=== PATIENT | female | born 1960 | race Caucasian/White ===

== ENCOUNTER 2020-09-23 02:46 | Inpatient (IN) ==
[2020-09-23] MEDS ORDERED: Ondansetron 4 MG/2 ML VIAL IVP PRN (03:03)
[2020-09-23] MEDS ORDERED: Naloxone 0.4 MG/ML INJ IVP PRN (03:03)
[2020-09-23] MEDS ORDERED: 0.9 % Sodium Chloride 1,000 ML IVC ONE (03:05)
[2020-09-23 03:49] LABS: Basophils % 0.4 %; Eosinophils % 0.4 %; Hematocrit 28.2 % (35.3-44.9); Hemoglobin 9.6 g/dL (11.5-15.4); Immature Granulocytes % 0.2 % (0-4); Lymphocytes # 1.8 K/mcL (0.6-4.6); Lymphocytes % 32.1 %; Mean Corpuscular Hemoglobin 31.7 pg (28.0-33.3); Mean Corpuscular Volume 93.1 fL (83.0-100.0); Mean Platelet Volume 9.3 fL (9.4-12.4); Monocytes # 0.4 K/mcL (0.0-1.3); Monocytes % 7.3 %; Neutrophils # 3.4 K/mcL (1.6-8.9); Platelet Count 263 K/mcL (140-400); Red Blood Count 3.03 M/mcL (3.82-4.97); Red Cell Distribution Width 13.2 % (11.5-14.5); Segmented Neutrophils % 59.6 %; White Blood Count 5.6 K/mcL (4.3-11.1)
[2020-09-23 03:56] LABS: INR 1.2; Prothrombin Time 13.8 Seconds (9.4-12.1)
[2020-09-23 04:15] LABS: Alanine Aminotransferase 10 Units/L (7-52); Albumin 2.8 g/dL (3.5-5.7); Albumin/Globulin Ratio 1.5 (1.1-2.2); Alkaline Phosphatase 31 Units/L (34-104); Aspartate Amino Transferase 14 Units/L (13-39); BUN/Creatinine Ratio 12 (6-26); Bilirubin,Total 0.5 mg/dL (0.3-1.0); Blood Urea Nitrogen 10 mg/dL (8-23); Calcium 7.2 mg/dL (8.6-10.3); Carbon Dioxide 20 mEq/L (23-29); Chloride 109 mEq/L (98-107); Globulin 1.9 g/dL (2.4-3.5); Glucose 113 mg/dL (70-105); Magnesium 1.5 mg/dL (1.6-2.6); Osmolality,Calculated 282 (280-300); Phosphorous 3.1 mg/dL (2.7-4.5); Potassium 3.3 mEq/L (3.5-5.1); Sodium 136 mEq/L (136-145); Total Protein 4.7 g/dL (6.4-8.9); Troponin I 0.07 ng/mL (< 0.04); eGFR For African Americans > 60 (> 60); eGFR For Non-African Americans > 60 (> 60)
[2020-09-23 05:15] LABS: Lipase 53 Units/L (11-82)
[2020-09-23] MEDS ORDERED: *HR* Enoxaparin 60 MG/0.6 ML SYRINGE SQ SCH (06:00)
[2020-09-23] MEDS ORDERED: Perflutren Lipid Microsphere 1.3 ML in 0.9 % Sodium Chloride 8.7 ML IVP PRN (08:10)
[2020-09-23] MEDS ORDERED: 0.9 % Sodium Chloride 500 ML IVC SCH (11:15)
[2020-09-23] MEDS ORDERED: 0.9 % Sodium Chloride 500 ML ONE (11:18)
[2020-09-23] MEDS: Acetaminophen 325 MG TABLET PO PRN (11:26)
[2020-09-23] MEDS ORDERED: *HR* Heparin 5,000 UNIT/ML VIAL IVP PRN ×4 (14:42→18:00)
[2020-09-23] MEDS: Aspirin Enteric Coated 81 MG Tablet PO SCH (15:10)
[2020-09-23] MEDS ORDERED: *HR* Promethazine 25 MG/ML VIAL IM PRN (16:20)
[2020-09-23] MEDS ORDERED: *HR* Metoprolol 5 MG/5 ML VIAL IVP PRN (16:20)
[2020-09-23] MEDS ORDERED: Isovue-370 500 ML BOTTLE IVP ONE (17:10)
[2020-09-23] MEDS ORDERED: Morphine Sulfate 2 MG/ML SYRINGE IVP ONE (17:11)
[2020-09-23] MEDS ORDERED: *HR* Metoprolol 5 MG/5 ML VIAL IVP ONE (17:27)
[2020-09-23] MEDS ORDERED: *HR* Heparin 5,000 UNIT/ML VIAL IVP ONE (18:00)
[2020-09-23] MEDS ORDERED: Ketorolac 30 MG/ML VIAL IVP ONE (18:07)
[2020-09-23] MEDS: Heparin 25,000UNIT/250ML 1/2NS 25,000 UNIT/250 ML IV.SOLN IVC SCH (19:18)
[2020-09-23] MEDS ORDERED: *HR* Promethazine 25 MG/ML VIAL IM ONE (19:37)
[2020-09-23] MEDS: Ondansetron 4 MG/2 ML VIAL IVP PRN (20:59)
[2020-09-23 23:04] LABS: Heparin anti-factor XA UFH 0.67 IU/mL (0.30-0.70)
[2020-09-23 23:05] LABS: Prothrombin Time 11.8 Seconds (9.4-12.1)
[2020-09-23 23:16] LABS: Hematocrit 32.6 % (35.3-44.9); Hemoglobin 11.2 g/dL (11.5-15.4); Mean Corpuscular HGB Conc 34.4 g/dL (31.6-35.5); Mean Corpuscular Hemoglobin 32.8 pg (28.0-33.3); Mean Corpuscular Volume 95.6 fL (83.0-100.0); Mean Platelet Volume 9.5 fL (9.4-12.4); Platelet Count 257 K/mcL (140-400); Red Blood Count 3.41 M/mcL (3.82-4.97); Red Cell Distribution Width 13.2 % (11.5-14.5); White Blood Count 4.9 K/mcL (4.3-11.1)
[2020-09-24 03:48] LABS: Basophils % 0.2 %; Immature Granulocytes % 0.2 % (0-4); Lymphocytes # 1.7 K/mcL (0.6-4.6); Lymphocytes % 41.5 %; Mean Corpuscular HGB Conc 33.9 g/dL (31.6-35.5); Mean Corpuscular Volume 97.2 fL (83.0-100.0); Mean Platelet Volume 9.1 fL (9.4-12.4); Monocytes # 0.3 K/mcL (0.0-1.3); Monocytes % 6.1 %; Neutrophils # 2.1 K/mcL (1.6-8.9); Platelet Count 220 K/mcL (140-400); Red Blood Count 2.88 M/mcL (3.82-4.97); Red Cell Distribution Width 13.3 % (11.5-14.5); White Blood Count 4.1 K/mcL (4.3-11.1)
[2020-09-24 03:49] LABS: Hemoglobin 9.5 g/dL (11.5-15.4)
[2020-09-24 04:03] LABS: BUN/Creatinine Ratio 8 (6-26); Blood Urea Nitrogen 7 mg/dL (8-23); Carbon Dioxide 22 mEq/L (23-29); Chloride 109 mEq/L (98-107); Glucose 101 mg/dL (70-105); Osmolality,Calculated 278 (280-300); Potassium 3.5 mEq/L (3.5-5.1); Sodium 135 mEq/L (136-145); eGFR For African Americans > 60 (> 60); eGFR For Non-African Americans > 60 (> 60)
[2020-09-24 04:05] LABS: % Iron Saturation 38 % (15-50); Iron 103 mcg/dL (50-170); Transferrin 192 mg/dL (203-362)
[2020-09-24 04:24] LABS: Ferritin 83 ng/mL (10-120)
[2020-09-24 04:29] LABS: Folate 6.1 ng/mL (3.0-16.0)
[2020-09-24 04:30] LABS: Vitamin B12 > 1500 pg/mL (250-1100)
[2020-09-24] MEDS: Aspirin Enteric Coated 81 MG Tablet PO SCH (09:44)
[2020-09-24] MEDS: *HR* HYDROcodone/Acet 5/325 mg TABLET PO PRN (09:56)
[2020-09-24] MEDS: Ondansetron 4 MG/2 ML VIAL IVP PRN ×2 (10:40→19:07)
[2020-09-24] MEDS: Heparin 25,000UNIT/250ML 1/2NS 25,000 UNIT/250 ML IV.SOLN IVC SCH ×2 (11:40→21:03)
[2020-09-24] MEDS: *HR* Metoprolol 5 MG/5 ML VIAL IVP PRN (11:56)
[2020-09-24] MEDS: *HR* Promethazine 25 MG/ML VIAL IM PRN (14:04)
[2020-09-24] MEDS ORDERED: Nitroglycerin 0.4 MG TAB.SUBL SL ONE (14:58)
[2020-09-24] MEDS: Pantoprazole 40 MG VIAL IVP SCH (15:09)
[2020-09-24] MEDS ORDERED: GI Cocktail 40 ML EACH PO ONE (15:15)
[2020-09-24] MEDS: lisinopriL 5 MG TABLET PO SCH (15:41)
[2020-09-25] MEDS: Acetaminophen 325 MG TABLET PO PRN ×2 (00:13→11:17)
[2020-09-25 02:21] LABS: Basophils % 0.4 %; Eosinophils % 0.4 %; Immature Granulocytes % 0.2 % (0-4); Lymphocytes % 37.5 %; Mean Corpuscular HGB Conc 33.3 g/dL (31.6-35.5); Mean Corpuscular Hemoglobin 32.1 pg (28.0-33.3); Mean Corpuscular Volume 96.2 fL (83.0-100.0); Mean Platelet Volume 9.5 fL (9.4-12.4); Monocytes # 0.3 K/mcL (0.0-1.3); Monocytes % 6.4 %; Neutrophils # 2.9 K/mcL (1.6-8.9); Platelet Count 228 K/mcL (140-400); Red Blood Count 3.12 M/mcL (3.82-4.97); Red Cell Distribution Width 13.3 % (11.5-14.5); Segmented Neutrophils % 55.1 %; White Blood Count 5.3 K/mcL (4.3-11.1)
[2020-09-25 02:27] LABS: BUN/Creatinine Ratio 9 (6-26); Blood Urea Nitrogen 6 mg/dL (8-23); Calcium 6.4 mg/dL (8.6-10.3); Carbon Dioxide 16 mEq/L (23-29); Chloride 113 mEq/L (98-107); Glucose 77 mg/dL (70-105); Osmolality,Calculated 280 (280-300); Potassium 3.2 mEq/L (3.5-5.1); Sodium 137 mEq/L (136-145); eGFR For African Americans > 60 (> 60); eGFR For Non-African Americans > 60 (> 60)
[2020-09-25] MEDS: PARoxetine 20 MG TABLET PO SCH (07:21)
[2020-09-25] MEDS: Aspirin Enteric Coated 81 MG Tablet PO SCH (07:22)
[2020-09-25] MEDS: Pantoprazole 40 MG VIAL IVP SCH (07:22)
[2020-09-25] MEDS: lisinopriL 5 MG TABLET PO SCH (07:23)
[2020-09-25 08:26] LABS: Chol/HDL Ratio 3.8 (0-4.9); Cholesterol 107 mg/dL (< 200); HDL Cholesterol 28 mg/dL (40-59); LDL Cholesterol,Calculated 60 mg/dL (< 100); Triglycerides 97 mg/dL (< 150)
[2020-09-25] MEDS: *HR* HYDROcodone/Acet 5/325 mg TABLET PO PRN ×2 (09:24→21:07)
[2020-09-25] MEDS: Ranolazine 500 MG TAB.ER.12H PO SCH ×2 (13:14→21:07)
[2020-09-25] MEDS: Metoclopramide 10 MG/2 ML VIAL IVP PRN ×2 (15:12→21:07)
[2020-09-25] MEDS: *HR* Promethazine 25 MG/ML VIAL IM PRN (15:38)
[2020-09-25] MEDS: *HR* Metoprolol 5 MG/5 ML VIAL IVP PRN (15:53)
[2020-09-25] MEDS ORDERED: Ketorolac 30 MG/ML VIAL IVP ONE (16:58)
[2020-09-25] MEDS: *HR* Heparin 5,000 UNIT/ML VIAL SQ SCH (17:10)
[2020-09-25] MEDS ORDERED: GI Cocktail 40 ML EACH PO ONE (21:56)
[2020-09-26] MEDS: *HR* Promethazine 25 MG/ML VIAL IM PRN ×3 (00:41→17:20)
[2020-09-26 03:00] LABS: Basophils % 0.4 %; Eosinophils % 0.2 %; Hematocrit 32.2 % (35.3-44.9); Hemoglobin 11.2 g/dL (11.5-15.4); Immature Granulocytes % 0.4 % (0-4); Lymphocytes # 1.2 K/mcL (0.6-4.6); Mean Corpuscular HGB Conc 34.8 g/dL (31.6-35.5); Mean Corpuscular Hemoglobin 32.6 pg (28.0-33.3); Mean Corpuscular Volume 93.6 fL (83.0-100.0); Monocytes # 0.2 K/mcL (0.0-1.3); Monocytes % 4.8 %; Neutrophils # 3.3 K/mcL (1.6-8.9); Platelet Count 234 K/mcL (140-400); Red Blood Count 3.44 M/mcL (3.82-4.97); Red Cell Distribution Width 13.2 % (11.5-14.5); Segmented Neutrophils % 69.2 %; White Blood Count 4.8 K/mcL (4.3-11.1)
[2020-09-26 04:02] LABS: BUN/Creatinine Ratio 13 (6-26); Blood Urea Nitrogen 11 mg/dL (8-23); Calcium 8.4 mg/dL (8.6-10.3); Carbon Dioxide 18 mEq/L (23-29); Chloride 102 mEq/L (98-107); Glucose 97 mg/dL (70-105); Osmolality,Calculated 271 (280-300); Potassium 4.6 mEq/L (3.5-5.1); Sodium 131 mEq/L (136-145); eGFR For African Americans > 60 (> 60); eGFR For Non-African Americans > 60 (> 60)
[2020-09-26] MEDS: *HR* Heparin 5,000 UNIT/ML VIAL SQ SCH ×2 (04:36→17:13)
[2020-09-26] MEDS: *HR* HYDROcodone/Acet 5/325 mg TABLET PO PRN (04:36)
[2020-09-26] MEDS ORDERED: 0.9 % Sodium Chloride 1,000 ML IVC ONE (05:26)
[2020-09-26] MEDS ORDERED: 0.9 % Sodium Chloride 500 ML IVC ONE (06:41)
[2020-09-26] MEDS ORDERED: 0.9 % Sodium Chloride 500 ML ONE (06:43)
[2020-09-26] MEDS: Pantoprazole 40 MG VIAL IVP SCH (08:50)
[2020-09-26] MEDS: Ranolazine 500 MG TAB.ER.12H PO SCH ×2 (08:50→19:30)
[2020-09-26] MEDS: Aspirin Enteric Coated 81 MG Tablet PO SCH (08:51)
[2020-09-26] MEDS: PARoxetine 20 MG TABLET PO SCH (08:51)
[2020-09-26] MEDS: lisinopriL 5 MG TABLET PO SCH (08:54)
[2020-09-26] MEDS: Metoclopramide 10 MG/2 ML VIAL IVP PRN ×2 (09:11→18:37)
[2020-09-26] MEDS: *HR* Metoprolol 5 MG/5 ML VIAL IVP PRN (10:55)
[2020-09-26] MEDS ORDERED: *HR* Vasopressin 20 UNIT/ML VIAL ONE (11:24)
[2020-09-26] MEDS ORDERED: Lidocaine -MPF 2% 2 ML VIAL ONE (13:05)
[2020-09-26] MEDS ORDERED: Ondansetron 4 MG/2 ML VIAL ONE (13:17)
[2020-09-26] MEDS: Ondansetron 4 MG/2 ML VIAL IVP PRN (22:52)
[2020-09-27] MEDS: *HR* Heparin 5,000 UNIT/ML VIAL SQ SCH ×2 (05:27→17:03)
[2020-09-27] MEDS: Metoclopramide 10 MG/2 ML VIAL IVP PRN ×2 (05:34→18:44)
[2020-09-27] MEDS: Pantoprazole 40 MG VIAL IVP SCH (08:08)
[2020-09-27] MEDS: Aspirin Enteric Coated 81 MG Tablet PO SCH (08:10)
[2020-09-27] MEDS: Ranolazine 500 MG TAB.ER.12H PO SCH (08:11)
[2020-09-27] MEDS: PARoxetine 20 MG TABLET PO SCH (08:11)
[2020-09-27] MEDS: lisinopriL 5 MG TABLET PO SCH (08:11)
[2020-09-27 11:30] LABS: BUN/Creatinine Ratio 9 (6-26); Blood Urea Nitrogen 9 mg/dL (8-23); Calcium 8.5 mg/dL (8.6-10.3); Carbon Dioxide 21 mEq/L (23-29); Chloride 105 mEq/L (98-107); Glucose 85 mg/dL (70-105); Magnesium 1.9 mg/dL (1.6-2.6); Osmolality,Calculated 274 (280-300); Sodium 133 mEq/L (136-145); eGFR For African Americans > 60 (> 60); eGFR For Non-African Americans 59 (> 60)
[2020-09-27] MEDS: Mag Hydrox/Al Hydrox/Simeth 30 ML UDC PO SCH ×2 (12:01→15:51)
[2020-09-27] MEDS: Famotidine 20 MG TABLET PO SCH ×2 (12:01→20:19)
[2020-09-27] MEDS ORDERED: Ketorolac 15 MG/ML VIAL IVP ONE (12:40)
[2020-09-27] MEDS: *HR* Promethazine 25 MG/ML VIAL IM PRN (13:21)
[2020-09-27] MEDS: Ondansetron 4 MG/2 ML VIAL IVP PRN (15:52)
[2020-09-27] MEDS: *HR* Metoprolol 5 MG/5 ML VIAL IVP PRN (17:04)
[2020-09-27 18:11] LABS: Metanephrine, Plasma 0.12 nmol/L (0.00-0.49)
[2020-09-28 01:53] LABS: Basophils % 0.4 %; Eosinophils % 0.4 %; Hematocrit 29.7 % (35.3-44.9); Hemoglobin 10.1 g/dL (11.5-15.4); Immature Granulocytes % 0.2 % (0-4); Lymphocytes # 1.4 K/mcL (0.6-4.6); Lymphocytes % 28.3 %; Mean Corpuscular Hemoglobin 32.2 pg (28.0-33.3); Mean Corpuscular Volume 94.6 fL (83.0-100.0); Monocytes # 0.4 K/mcL (0.0-1.3); Monocytes % 7.2 %; Neutrophils # 3.2 K/mcL (1.6-8.9); Platelet Count 191 K/mcL (140-400); Red Blood Count 3.14 M/mcL (3.82-4.97); Red Cell Distribution Width 13.3 % (11.5-14.5); Segmented Neutrophils % 63.5 %
[2020-09-28 02:13] LABS: BUN/Creatinine Ratio 10 (6-26); Blood Urea Nitrogen 11 mg/dL (8-23); Calcium 8.4 mg/dL (8.6-10.3); Carbon Dioxide 22 mEq/L (23-29); Chloride 104 mEq/L (98-107); Glucose 86 mg/dL (70-105); Magnesium 1.9 mg/dL (1.6-2.6); Osmolality,Calculated 275 (280-300); Potassium 4.6 mEq/L (3.5-5.1); Sodium 133 mEq/L (136-145); eGFR For African Americans > 60 (> 60); eGFR For Non-African Americans 51 (> 60)
[2020-09-28] MEDS: *HR* Heparin 5,000 UNIT/ML VIAL SQ SCH ×2 (06:02→17:24)
[2020-09-28] MEDS: Mag Hydrox/Al Hydrox/Simeth 30 ML UDC PO SCH ×3 (09:44→15:54)
[2020-09-28] MEDS: Famotidine 20 MG TABLET PO SCH ×2 (09:45→22:33)
[2020-09-28] MEDS: PARoxetine 20 MG TABLET PO SCH (09:45)
[2020-09-28] MEDS: Aspirin Enteric Coated 81 MG Tablet PO SCH (09:45)
[2020-09-28] MEDS ORDERED: 0.9 % Sodium Chloride 1,000 ML ONE (15:43)
[2020-09-28] MEDS ORDERED: 0.9 % Sodium Chloride 500 ML IVC ONE (17:18)
[2020-09-28] MEDS: Ondansetron 4 MG/2 ML VIAL IVP PRN (18:18)
[2020-09-28] MEDS: *HR* Promethazine 25 MG/ML VIAL IM PRN (18:40)
[2020-09-28] MEDS: Ketorolac 30 MG/ML VIAL IVP PRN (19:26)
[2020-09-28] MEDS: *HR* Metoprolol 5 MG/5 ML VIAL IVP PRN (20:47)
[2020-09-28] MEDS ORDERED: Scopolamine Patch 1.5 MG PATCH.TD72 TD SCH (22:45)
[2020-09-28] MEDS: Metoclopramide 10 MG/2 ML VIAL IVP PRN (22:48)
[2020-09-29] MEDS: Ondansetron 4 MG/2 ML VIAL IVP PRN ×2 (03:48→21:18)
[2020-09-29 04:56] LABS: Basophils % 0.3 %; Eosinophils % 0.1 %; Hematocrit 32.9 % (35.3-44.9); Hemoglobin 11.3 g/dL (11.5-15.4); Immature Granulocytes % 0.3 % (0-4); Lymphocytes # 1.1 K/mcL (0.6-4.6); Lymphocytes % 16.4 %; Mean Corpuscular HGB Conc 34.3 g/dL (31.6-35.5); Mean Corpuscular Hemoglobin 32.6 pg (28.0-33.3); Mean Corpuscular Volume 94.8 fL (83.0-100.0); Mean Platelet Volume 10.4 fL (9.4-12.4); Monocytes # 0.4 K/mcL (0.0-1.3); Monocytes % 6.3 %; Neutrophils # 5.2 K/mcL (1.6-8.9); Platelet Count 227 K/mcL (140-400); Red Blood Count 3.47 M/mcL (3.82-4.97); Red Cell Distribution Width 13.5 % (11.5-14.5); Segmented Neutrophils % 76.6 %; White Blood Count 6.8 K/mcL (4.3-11.1)
[2020-09-29 05:12] LABS: BUN/Creatinine Ratio 14 (6-26); Blood Urea Nitrogen 14 mg/dL (8-23); Calcium 8.8 mg/dL (8.6-10.3); Carbon Dioxide 20 mEq/L (23-29); Chloride 106 mEq/L (98-107); Glucose 138 mg/dL (70-105); Osmolality,Calculated 281 (280-300); Potassium 4.5 mEq/L (3.5-5.1); Sodium 134 mEq/L (136-145); eGFR For African Americans > 60 (> 60); eGFR For Non-African Americans 55 (> 60)
[2020-09-29] MEDS: *HR* Heparin 5,000 UNIT/ML VIAL SQ SCH ×2 (06:27→18:26)
[2020-09-29] MEDS: Aspirin Enteric Coated 81 MG Tablet PO SCH (08:26)
[2020-09-29] MEDS: Mag Hydrox/Al Hydrox/Simeth 30 ML UDC PO SCH ×3 (08:26→15:54)
[2020-09-29] MEDS: PARoxetine 20 MG TABLET PO SCH (08:27)
[2020-09-29] MEDS: Famotidine 20 MG TABLET PO SCH ×2 (08:28→22:27)
[2020-09-29 10:01] LABS: Adenovirus Not Detected (Not Detect); Bordetella Pertussis Not Detected (Not Detect); Chlamydophila pneumoniae Not Detected (Not Detect); Coronavirus 229E Not Detected (Not Detect); Coronavirus HKU1 Not Detected (Not Detect); Coronavirus NL63 Not Detected (Not Detect); Coronavirus OC43 Not Detected (Not Detect); Human Metapneumovirus Not Detected (Not Detect); Human Rhinovirus/Enterovirus Not Detected (Not Detect); Influenza A Subtype 2009 H1 Not Detected (Not Detect); Influenza B Not Detected (Not Detect); Mycoplasma pneumoniae Not Detected (Not Detect); Parainfluenza Virus 1 Not Detected (Not Detect); Parainfluenza Virus 2 Not Detected (Not Detect); Parainfluenza Virus 3 Not Detected (Not Detect); Parainfluenza Virus 4 Not Detected (Not Detect); Respiratory Syncytial Virus Not Detected (Not Detect); SARS-CoV-2 Not Detected (Not Detect)
[2020-09-29] MEDS: Acetaminophen 325 MG TABLET PO PRN (22:26)
[2020-09-30] MEDS: Ketorolac 30 MG/ML VIAL IVP PRN (04:21)
[2020-09-30 04:46] LABS: Basophils % 0.6 %; Eosinophils # 0.1 K/mcL (0.0-0.6); Eosinophils % 1.5 %; Hematocrit 29.4 % (35.3-44.9); Hemoglobin 9.9 g/dL (11.5-15.4); Immature Granulocytes % 0.2 % (0-4); Lymphocytes # 1.7 K/mcL (0.6-4.6); Lymphocytes % 35.9 %; Mean Corpuscular HGB Conc 33.7 g/dL (31.6-35.5); Mean Corpuscular Hemoglobin 32.8 pg (28.0-33.3); Mean Corpuscular Volume 97.4 fL (83.0-100.0); Mean Platelet Volume 10.1 fL (9.4-12.4); Monocytes # 0.4 K/mcL (0.0-1.3); Neutrophils # 2.5 K/mcL (1.6-8.9); Platelet Count 189 K/mcL (140-400); Red Blood Count 3.02 M/mcL (3.82-4.97); Segmented Neutrophils % 52.8 %; White Blood Count 4.8 K/mcL (4.3-11.1)
[2020-09-30 05:04] LABS: BUN/Creatinine Ratio 9 (6-26); Blood Urea Nitrogen 9 mg/dL (8-23); Calcium 8.2 mg/dL (8.6-10.3); Carbon Dioxide 22 mEq/L (23-29); Chloride 106 mEq/L (98-107); Glucose 102 mg/dL (70-105); Osmolality,Calculated 277 (280-300); Potassium 4.5 mEq/L (3.5-5.1); Sodium 134 mEq/L (136-145); eGFR For African Americans > 60 (> 60); eGFR For Non-African Americans 56 (> 60)
[2020-09-30] MEDS: *HR* Heparin 5,000 UNIT/ML VIAL SQ SCH ×2 (06:10→17:42)
[2020-09-30] MEDS: Aspirin Enteric Coated 81 MG Tablet PO SCH (09:31)
[2020-09-30] MEDS: PARoxetine 20 MG TABLET PO SCH (09:31)
[2020-09-30] MEDS: Famotidine 20 MG TABLET PO SCH ×2 (09:32→20:54)
[2020-09-30] MEDS: Mag Hydrox/Al Hydrox/Simeth 30 ML UDC PO SCH ×3 (09:33→17:41)
[2020-09-30] MEDS: *HR* Promethazine 25 MG/ML VIAL IM PRN ×2 (10:31→17:43)
[2020-09-30] MEDS: *HR* Metoprolol 5 MG/5 ML VIAL IVP PRN (12:11)
[2020-09-30] MEDS: Ondansetron 4 MG/2 ML VIAL IVP PRN (12:19)
[2020-09-30] MEDS: Metoclopramide 10 MG/2 ML VIAL IVP PRN (20:53)
[2020-09-30] MEDS: *HR* HYDROcodone/Acet 5/325 mg TABLET PO PRN (23:53)
[2020-10-01 01:39] LABS: BUN/Creatinine Ratio 10 (6-26); Blood Urea Nitrogen 10 mg/dL (8-23); Calcium 8.8 mg/dL (8.6-10.3); Carbon Dioxide 19 mEq/L (23-29); Chloride 106 mEq/L (98-107); Glucose 120 mg/dL (70-105); Osmolality,Calculated 276 (280-300); Potassium 4.6 mEq/L (3.5-5.1); Sodium 133 mEq/L (136-145); eGFR For African Americans > 60 (> 60); eGFR For Non-African Americans 57 (> 60)
[2020-10-01] MEDS: *HR* Heparin 5,000 UNIT/ML VIAL SQ SCH ×2 (05:28→17:08)
[2020-10-01] MEDS: Mag Hydrox/Al Hydrox/Simeth 30 ML UDC PO SCH ×3 (08:25→17:08)
[2020-10-01] MEDS: PARoxetine 20 MG TABLET PO SCH (08:26)
[2020-10-01] MEDS: Famotidine 20 MG TABLET PO SCH ×2 (08:26→20:25)
[2020-10-01] MEDS: Aspirin Enteric Coated 81 MG Tablet PO SCH (08:26)
[2020-10-01 08:40] LABS: Basophils % 0.5 %; Eosinophils # 0.1 K/mcL (0.0-0.6); Eosinophils % 1.9 %; Hematocrit 32.6 % (35.3-44.9); Hemoglobin 10.9 g/dL (11.5-15.4); Immature Granulocytes % 0.2 % (0-4); Lymphocytes # 1.3 K/mcL (0.6-4.6); Lymphocytes % 30.8 %; Mean Corpuscular HGB Conc 33.4 g/dL (31.6-35.5); Mean Corpuscular Hemoglobin 32.3 pg (28.0-33.3); Mean Corpuscular Volume 96.7 fL (83.0-100.0); Mean Platelet Volume 10.1 fL (9.4-12.4); Monocytes # 0.4 K/mcL (0.0-1.3); Monocytes % 10.7 %; Neutrophils # 2.3 K/mcL (1.6-8.9); Platelet Count 211 K/mcL (140-400); Red Blood Count 3.37 M/mcL (3.82-4.97); Red Cell Distribution Width 14.1 % (11.5-14.5); Segmented Neutrophils % 55.9 %; White Blood Count 4.1 K/mcL (4.3-11.1)
[2020-10-01] MEDS: Ondansetron 4 MG/2 ML VIAL IVP PRN ×2 (14:59→22:41)
[2020-10-01] MEDS: *HR* HYDROcodone/Acet 5/325 mg TABLET PO PRN (14:59)
[2020-10-01] MEDS: Metoclopramide 10 MG/2 ML VIAL IVP PRN (20:25)
[2020-10-01] MEDS ORDERED: *HR* Metoprolol 5 MG/5 ML VIAL IVP ONE (22:44)
[2020-10-01] MEDS ORDERED: Acetaminophen IV 1,000 MG/100 ML BAG IVPB ONE (22:48)
[2020-10-02] MEDS: *HR* Promethazine 25 MG/ML VIAL IM PRN ×4 (01:39→21:25)
[2020-10-02 03:03] LABS: Basophils % 0.4 %; Eosinophils % 0.2 %; Hematocrit 32.6 % (35.3-44.9); Hemoglobin 11.2 g/dL (11.5-15.4); Immature Granulocytes % 0.2 % (0-4); Lymphocytes # 1.1 K/mcL (0.6-4.6); Lymphocytes % 21.9 %; Mean Corpuscular HGB Conc 34.4 g/dL (31.6-35.5); Mean Corpuscular Hemoglobin 32.8 pg (28.0-33.3); Mean Corpuscular Volume 95.6 fL (83.0-100.0); Mean Platelet Volume 10.7 fL (9.4-12.4); Monocytes # 0.4 K/mcL (0.0-1.3); Monocytes % 8.2 %; Neutrophils # 3.4 K/mcL (1.6-8.9); Platelet Count 215 K/mcL (140-400); Red Blood Count 3.41 M/mcL (3.82-4.97); Red Cell Distribution Width 13.5 % (11.5-14.5); Segmented Neutrophils % 69.1 %
[2020-10-02 03:14] LABS: BUN/Creatinine Ratio 11 (6-26); Blood Urea Nitrogen 11 mg/dL (8-23); Calcium 8.9 mg/dL (8.6-10.3); Carbon Dioxide 20 mEq/L (23-29); Chloride 103 mEq/L (98-107); Glucose 139 mg/dL (70-105); Osmolality,Calculated 276 (280-300); Potassium 4.4 mEq/L (3.5-5.1); Sodium 132 mEq/L (136-145); eGFR For African Americans > 60 (> 60); eGFR For Non-African Americans 55 (> 60)
[2020-10-02] MEDS ORDERED: *HR* Metoprolol 5 MG/5 ML VIAL IVP ONE (03:31)
[2020-10-02] MEDS: Metoclopramide 10 MG/2 ML VIAL IVP PRN (03:56)
[2020-10-02] MEDS: *HR* Heparin 5,000 UNIT/ML VIAL SQ SCH ×2 (05:14→19:30)
[2020-10-02] MEDS: Ondansetron 4 MG/2 ML VIAL IVP PRN ×2 (06:49→15:01)
[2020-10-02] MEDS: Mag Hydrox/Al Hydrox/Simeth 30 ML UDC PO SCH ×3 (08:52→19:30)
[2020-10-02] MEDS: Aspirin Enteric Coated 81 MG Tablet PO SCH (08:53)
[2020-10-02] MEDS: Famotidine 20 MG TABLET PO SCH (08:53)
[2020-10-02] MEDS: PARoxetine 20 MG TABLET PO SCH (08:54)
[2020-10-02 12:01] LABS: Thyroid Stimulating Hormone 2.385 mcIU/mL (0.340-5.600)
[2020-10-03] MEDS: Famotidine 20 MG TABLET PO SCH ×3 (00:16→21:42)
[2020-10-03 04:04] LABS: Basophils % 0.2 %; Eosinophils # 0.1 K/mcL (0.0-0.6); Eosinophils % 1.5 %; Hemoglobin 10.1 g/dL (11.5-15.4); Immature Granulocytes % 0.2 % (0-4); Lymphocytes # 1.7 K/mcL (0.6-4.6); Lymphocytes % 30.9 %; Mean Corpuscular HGB Conc 33.7 g/dL (31.6-35.5); Mean Corpuscular Hemoglobin 32.5 pg (28.0-33.3); Mean Corpuscular Volume 96.5 fL (83.0-100.0); Mean Platelet Volume 10.2 fL (9.4-12.4); Monocytes # 0.6 K/mcL (0.0-1.3); Monocytes % 10.4 %; Neutrophils # 3.1 K/mcL (1.6-8.9); Platelet Count 224 K/mcL (140-400); Red Blood Count 3.11 M/mcL (3.82-4.97); Red Cell Distribution Width 13.7 % (11.5-14.5); Segmented Neutrophils % 56.8 %; White Blood Count 5.4 K/mcL (4.3-11.1)
[2020-10-03 04:18] LABS: BUN/Creatinine Ratio 9 (6-26); Blood Urea Nitrogen 10 mg/dL (8-23); Calcium 8.7 mg/dL (8.6-10.3); Carbon Dioxide 24 mEq/L (23-29); Chloride 103 mEq/L (98-107); Glucose 110 mg/dL (70-105); Osmolality,Calculated 278 (280-300); Potassium 4.3 mEq/L (3.5-5.1); Sodium 134 mEq/L (136-145); eGFR For African Americans > 60 (> 60); eGFR For Non-African Americans 52 (> 60)
[2020-10-03] MEDS: *HR* Heparin 5,000 UNIT/ML VIAL SQ SCH ×2 (05:12→18:24)
[2020-10-03] MEDS: Mag Hydrox/Al Hydrox/Simeth 30 ML UDC PO SCH ×3 (08:50→16:19)
[2020-10-03] MEDS: PARoxetine 20 MG TABLET PO SCH (08:51)
[2020-10-03] MEDS: Aspirin Enteric Coated 81 MG Tablet PO SCH (08:52)
[2020-10-03] MEDS: Ondansetron 4 MG/2 ML VIAL IVP PRN ×2 (09:00→16:20)
[2020-10-03] MEDS ORDERED: Capsaicin 0.025% 60 GM TUBE TP PRN (11:05)
[2020-10-03] MEDS: *HR* Promethazine 25 MG/ML VIAL IM PRN ×2 (11:19→22:45)
[2020-10-03] MEDS: *HR* HYDROcodone/Acet 5/325 mg TABLET PO PRN ×2 (16:23→22:43)
[2020-10-04 05:12] LABS: Basophils % 0.5 %; Eosinophils # 0.1 K/mcL (0.0-0.6); Eosinophils % 2.4 %; Hematocrit 29.6 % (35.3-44.9); Immature Granulocytes % 0.3 % (0-4); Lymphocytes # 1.8 K/mcL (0.6-4.6); Lymphocytes % 49.1 %; Mean Corpuscular HGB Conc 33.8 g/dL (31.6-35.5); Mean Corpuscular Hemoglobin 33.3 pg (28.0-33.3); Mean Corpuscular Volume 98.7 fL (83.0-100.0); Mean Platelet Volume 10.3 fL (9.4-12.4); Monocytes # 0.4 K/mcL (0.0-1.3); Monocytes % 10.7 %; Neutrophils # 1.4 K/mcL (1.6-8.9); Platelet Count 239 K/mcL (140-400); Red Cell Distribution Width 13.9 % (11.5-14.5); White Blood Count 3.8 K/mcL (4.3-11.1)
[2020-10-04 05:30] LABS: BUN/Creatinine Ratio 11 (6-26); Blood Urea Nitrogen 12 mg/dL (8-23); Calcium 8.7 mg/dL (8.6-10.3); Carbon Dioxide 25 mEq/L (23-29); Chloride 102 mEq/L (98-107); Glucose 100 mg/dL (70-105); Osmolality,Calculated 280 (280-300); Potassium 3.9 mEq/L (3.5-5.1); Sodium 135 mEq/L (136-145); eGFR For African Americans > 60 (> 60); eGFR For Non-African Americans 52 (> 60)
[2020-10-04] MEDS: *HR* Heparin 5,000 UNIT/ML VIAL SQ SCH ×2 (06:25→17:01)
[2020-10-04] MEDS: Ondansetron 4 MG/2 ML VIAL IVP PRN ×2 (06:28→21:48)
[2020-10-04] MEDS: Mag Hydrox/Al Hydrox/Simeth 30 ML UDC PO SCH ×3 (08:33→17:00)
[2020-10-04] MEDS: Famotidine 20 MG TABLET PO SCH ×2 (08:34→20:15)
[2020-10-04] MEDS: Aspirin Enteric Coated 81 MG Tablet PO SCH (08:34)
[2020-10-04] MEDS: PARoxetine 20 MG TABLET PO SCH (08:35)
[2020-10-04] MEDS: *HR* Promethazine 25 MG/ML VIAL IM PRN (08:45)
[2020-10-04] MEDS ORDERED: Haloperidol Lactate 5 MG/ML VIAL IVP ONE (15:02)
[2020-10-04] MEDS: Ringers Solution, Lactated 1,000 ML IVC SCH (15:20)
[2020-10-04] MEDS: *HR* HYDROcodone/Acet 5/325 mg TABLET PO PRN (20:13)
[2020-10-05 03:36] LABS: Basophils % 0.6 %; Eosinophils # 0.1 K/mcL (0.0-0.6); Eosinophils % 3.2 %; Hemoglobin 8.9 g/dL (11.5-15.4); Immature Granulocytes % 0.3 % (0-4); Lymphocytes # 1.7 K/mcL (0.6-4.6); Lymphocytes % 50.3 %; Mean Corpuscular Hemoglobin 32.6 pg (28.0-33.3); Mean Corpuscular Volume 98.9 fL (83.0-100.0); Monocytes # 0.4 K/mcL (0.0-1.3); Monocytes % 10.2 %; Neutrophils # 1.2 K/mcL (1.6-8.9); Platelet Count 223 K/mcL (140-400); Red Blood Count 2.73 M/mcL (3.82-4.97); Red Cell Distribution Width 13.7 % (11.5-14.5); Segmented Neutrophils % 35.4 %; White Blood Count 3.4 K/mcL (4.3-11.1)
[2020-10-05 03:57] LABS: BUN/Creatinine Ratio 12 (6-26); Blood Urea Nitrogen 12 mg/dL (8-23); Calcium 8.2 mg/dL (8.6-10.3); Carbon Dioxide 23 mEq/L (23-29); Chloride 105 mEq/L (98-107); Glucose 93 mg/dL (70-105); Osmolality,Calculated 279 (280-300); Sodium 135 mEq/L (136-145); eGFR For African Americans > 60 (> 60); eGFR For Non-African Americans 54 (> 60)
[2020-10-05] MEDS: Ringers Solution, Lactated 1,000 ML IVC SCH (05:48)
[2020-10-05] MEDS: *HR* Heparin 5,000 UNIT/ML VIAL SQ SCH ×2 (05:49→18:01)
[2020-10-05] MEDS ORDERED: 0.9 % Sodium Chloride 1,000 ML IVC SCH (08:00)
[2020-10-05] MEDS: PARoxetine 20 MG TABLET PO SCH (10:05)
[2020-10-05] MEDS: Famotidine 20 MG TABLET PO SCH ×2 (10:05→20:17)
[2020-10-05] MEDS: Mag Hydrox/Al Hydrox/Simeth 30 ML UDC PO SCH ×3 (10:16→16:30)
[2020-10-05] MEDS: Aspirin Enteric Coated 81 MG Tablet PO SCH (10:17)
[2020-10-05] MEDS: *HR* HYDROcodone/Acet 5/325 mg TABLET PO PRN ×2 (10:17→20:17)
[2020-10-05] MEDS: Ondansetron 4 MG/2 ML VIAL IVP PRN (14:23)
[2020-10-05] MEDS: *HR* Promethazine 25 MG/ML VIAL IM PRN (15:40)
[2020-10-05] MEDS: *HR* Metoprolol 5 MG/5 ML VIAL IVP PRN (22:16)
[2020-10-06] MEDS: *HR* Promethazine 25 MG/ML VIAL IM PRN ×2 (01:38→17:25)
[2020-10-06] MEDS: *HR* Heparin 5,000 UNIT/ML VIAL SQ SCH ×2 (05:25→17:24)
[2020-10-06] MEDS: Famotidine 20 MG TABLET PO SCH ×2 (08:00→21:05)
[2020-10-06] MEDS: PARoxetine 20 MG TABLET PO SCH (08:06)
[2020-10-06] MEDS: Mag Hydrox/Al Hydrox/Simeth 30 ML UDC PO SCH ×3 (08:06→17:24)
[2020-10-06] MEDS: Aspirin Enteric Coated 81 MG Tablet PO SCH (08:06)
[2020-10-06] MEDS: *HR* HYDROcodone/Acet 5/325 mg TABLET PO PRN (08:16)
[2020-10-06 08:18] LABS: Basophils % 0.9 %; Eosinophils # 0.1 K/mcL (0.0-0.6); Eosinophils % 1.4 %; Hematocrit 28.5 % (35.3-44.9); Hemoglobin 9.6 g/dL (11.5-15.4); Immature Granulocytes % 0.3 % (0-4); Lymphocytes # 1.5 K/mcL (0.6-4.6); Lymphocytes % 42.3 %; Mean Corpuscular HGB Conc 33.7 g/dL (31.6-35.5); Mean Corpuscular Hemoglobin 32.8 pg (28.0-33.3); Mean Corpuscular Volume 97.3 fL (83.0-100.0); Mean Platelet Volume 9.6 fL (9.4-12.4); Monocytes # 0.5 K/mcL (0.0-1.3); Neutrophils # 1.5 K/mcL (1.6-8.9); Platelet Count 275 K/mcL (140-400); Red Blood Count 2.93 M/mcL (3.82-4.97); Red Cell Distribution Width 13.5 % (11.5-14.5); Segmented Neutrophils % 42.1 %; White Blood Count 3.5 K/mcL (4.3-11.1)
[2020-10-06 08:35] LABS: BUN/Creatinine Ratio 9 (6-26); Blood Urea Nitrogen 8 mg/dL (8-23); Calcium 8.4 mg/dL (8.6-10.3); Carbon Dioxide 24 mEq/L (23-29); Chloride 106 mEq/L (98-107); Glucose 108 mg/dL (70-105); Osmolality,Calculated 281 (280-300); Potassium 3.6 mEq/L (3.5-5.1); Sodium 136 mEq/L (136-145); eGFR For African Americans > 60 (> 60); eGFR For Non-African Americans > 60 (> 60)
[2020-10-06] MEDS: Ondansetron 4 MG/2 ML VIAL IVP PRN (12:27)
[2020-10-06] MEDS: Acetaminophen 325 MG TABLET PO PRN (13:37)
[2020-10-06] MEDS ORDERED: *HR* HYDROcodone/Acet 5/325 mg TABLET PO PRN (17:09)
[2020-10-06] MEDS ORDERED: 0.9 % Sodium Chloride 250 ML IVC ONE (23:54)
[2020-10-07] MEDS: *HR* Heparin 5,000 UNIT/ML VIAL SQ SCH ×2 (05:23→17:44)
[2020-10-07] MEDS: *HR* Promethazine 25 MG/ML VIAL IM PRN ×2 (06:09→14:18)
[2020-10-07 07:16] LABS: BUN/Creatinine Ratio 14 (6-26); Blood Urea Nitrogen 14 mg/dL (8-23); Calcium 8.4 mg/dL (8.6-10.3); Carbon Dioxide 23 mEq/L (23-29); Chloride 105 mEq/L (98-107); Glucose 121 mg/dL (70-105); Osmolality,Calculated 284 (280-300); Potassium 3.9 mEq/L (3.5-5.1); Sodium 136 mEq/L (136-145); eGFR For African Americans > 60 (> 60); eGFR For Non-African Americans 57 (> 60)
[2020-10-07 07:31] LABS: Basophils % 0.6 %; Eosinophils # 0.1 K/mcL (0.0-0.6); Eosinophils % 1.7 %; Hematocrit 29.7 % (35.3-44.9); Immature Granulocytes % 0.4 % (0-4); Lymphocytes # 2.1 K/mcL (0.6-4.6); Lymphocytes % 44.1 %; Mean Corpuscular HGB Conc 33.7 g/dL (31.6-35.5); Mean Corpuscular Hemoglobin 32.7 pg (28.0-33.3); Mean Corpuscular Volume 97.1 fL (83.0-100.0); Mean Platelet Volume 10.4 fL (9.4-12.4); Monocytes # 0.7 K/mcL (0.0-1.3); Neutrophils # 1.8 K/mcL (1.6-8.9); Platelet Count 295 K/mcL (140-400); Red Blood Count 3.06 M/mcL (3.82-4.97); Red Cell Distribution Width 13.9 % (11.5-14.5); Segmented Neutrophils % 38.2 %; White Blood Count 4.8 K/mcL (4.3-11.1)
[2020-10-07] MEDS: Ondansetron 4 MG/2 ML VIAL IVP PRN (08:09)
[2020-10-07] MEDS ORDERED: diazePAM 10 MG/2 ML SYRINGE IVP STA (11:08)
[2020-10-07] MEDS ORDERED: Haloperidol Lactate 5 MG/ML VIAL IVP ONE (11:24)
[2020-10-07] MEDS: Aspirin Enteric Coated 81 MG Tablet PO SCH (11:55)
[2020-10-07] MEDS: Mag Hydrox/Al Hydrox/Simeth 30 ML UDC PO SCH ×3 (11:55→16:15)
[2020-10-07] MEDS: PARoxetine 20 MG TABLET PO SCH (11:56)
[2020-10-07] MEDS: Famotidine 20 MG TABLET PO SCH (11:56)
[2020-10-07] MEDS: Acetaminophen 325 MG TABLET PO PRN (14:18)
[2020-10-07] MEDS ORDERED: hydrOXYzine pamoate 25 MG CAPSULE PO ONE (17:30)
[2020-10-07 18:46] VITALS: BP 71/50
== END 2020-10-07 19:37 | disposition short-term general hospital (02) | DRG 254 ==
LOC: 3BNU → SUATTDRO 02:46 → 2NNU 21:08 → 3ANU 09-28 11:23
PROVIDERS: ADMIT Family Medicine; ATTEND Internal Medicine
PROC: ENDOEBX (2020-09-26 13:45)